=== PATIENT | female | born 1950 | race Caucasian/White ===

== ENCOUNTER → 2017-07-31 09:55 | Outpatient (CLI) | payer MEDICARE, OTHER, SELFPAY | PROVIDERS: Family Provider Physician Assistant; PCP Physician Assistant; Visit Provider Physician Assistant | DX: M85.88 Other specified disorders of bone density and structure, other site (principal) | CPT/HCPCS: 77080 ==

== ENCOUNTER → 2017-08-17 15:28 | Outpatient (CLI) | payer MEDICARE, OTHER, SELFPAY ==
--- NOTE | 2017-08-17 | DI.MG.S_ITS ---
BILATERAL DIGITAL SCREENING MAMMOGRAM 3D/2D WITH CAD: 08/17/2017 CLINICAL: Routine screening. Family history of breast cancer. Comparison is made to exams dated: 07/29/2016 mammogram - [facility], 04/23/2015 mammogram, and 01/03/2014 mammogram - [facility]. The tissue of both breasts is heterogeneously dense. This may lower the sensitivity of mammography. Current study was also evaluated with a Computer Aided Detection (CAD) system. No significant masses, calcifications, or other findings are seen in either breast. There has been no significant interval change. IMPRESSION: NEGATIVE There is no mammographic evidence of malignancy. A 1 year screening mammogram is recommended. This exam was interpreted at Station ID: [id number]. NOTE: For mammograms, a report in lay terms will be sent to the patient. Approximately 15% of breast malignancies will not be visualized mammographically. In the management of a palpable breast mass, a negative mammogram must not discourage biopsy of a clinically suspicious lesion. Electronically Signed By: Mendoza [email or web address]:08/18/2017 13:40:29 letter sent: Normal Exam ACR BI-RADS Category 1: Negative [id number]
== END ==
PROVIDERS: Family Provider Physician Assistant; PCP Physician Assistant; Visit Provider Physician Assistant
DX: Z12.31 Encounter for screening mammogram for malignant neoplasm of breast (principal); Z80.3 Family history of malignant neoplasm of breast
CPT/HCPCS: 77063; 77067

== ENCOUNTER 2017-08-28 19:44 | Emergency (ER) | payer MEDICARE, OTHER, SELFPAY ==
[2017-08-28 19:55] VITALS: BP 219/102; PULSE 84; RESP 18; TEMP 36.9; O2SAT 98; BMI 22.4
[2017-08-28 20:45] VITALS: BP 205/93; PULSE 68; O2SAT 100
[2017-08-28 20:53] LABS: Bacteria Urine None Seen; WBC Urine None Seen (0-5/HPF)
[2017-08-28 20:54] LABS: Appearance Urine UA CLEAR; Bilirubin Urine UA NEGATIVE (NEGATIVE); Color Urine UA YELLOW; Glucose Urine UA NEGATIVE (Normal); Ketones Urine UA NEGATIVE (NEGATIVE); Leukocyte Esterase Urine UA NEGATIVE (NEGATIVE); Nitrite Urine UA Negative (Negative); Occult Blood Urine UA 2+ (Negative); Protein Urine UA NEGATIVE (Negative); Urobilinogen Urine UA 0.2 E.U./dL (0.2)
[2017-08-28 21:04] VITALS: BP 175/80; PULSE 63; RESP 18; O2SAT 99
[2017-08-28 21:15] LABS: Culture Indicated Urine Cult Not Indicated; RBC Urine 0-1/HPF (0-5/HPF); Squamous Epithelial Cell Urine 0-1 /HPF
[2017-08-28 21:36] VITALS: BP 153/66; PULSE 59; RESP 14; O2SAT 98
[2017-08-28 22:04] VITALS: BP 155/72
--- NOTE | 2017-08-28 22:23 | ED.GENADULT ---
HPI - General Adult General Chief complaint: Hypertension Stated complaint: BLOOD PRESSURE KEEPS GOING UP AND HEADACHE Time Seen by Provider: 08/28/17 20:34 Source: patient Mode of arrival: ambulatory Limitations: no limitations History of Present Illness HPI narrative: 67-year-old female here for evaluation of a headache and high blood pressure. Patient states that throughout today she noticed that her blood pressure was going up. She states that she is taking her blood pressures multiple times today. She states that she has become anxious because of this. She states she has noticed that she has started to develop a headache. No vision changes. No chest pain. No shortness of breath. She has not tried anything to bring it down prior to arrival. Has not tried any Tylenol for her headache. She does have a history of high blood pressure does on hydrochlorothiazide. Related Data Home Medications Medication Instructions Recorded Confirmed multivitamin [Multiple Vitamins] 1 tab PO SEE INSTRUCTIONS #0 11/15/16 08/28/17 cholecalciferol (vitamin D3) 2,000 unit PO DAILY 08/28/17 08/28/17 [Vitamin D3] Previous Rx's Medication Instructions Recorded hydrochlorothiazide 25 mg PO QDAY #90 tab 06/05/17 Allergies Allergy/AdvReac Type Severity Reaction Status Date / Time No Known Drug Allergies Allergy Verified 08/28/17 19:59 Review of Systems Constitutional Denies chills, Denies fever(s), Reports headache(s), Denies lethargy and Denies weakness Eyes Denies change in vision, Denies eye discharge, Denies irritation and Denies loss of vision ENT Ears, Nose, Mouth, and Throat: Denies change in voice, Reports headache(s), Denies neck pain and Denies sore throat Cardiovascular Denies chest pain, Denies irregular heart rhythm, Denies lightheadedness, Denies palpitations, Denies dyspnea, Denies dyspnea on exertion and Denies orthopnea Respiratory Denies cough, Denies dyspnea, Denies dyspnea on exertion and Denies wheezing Gastrointestinal Gastrointestinal: Denies abdominal pain, Denies change in bowel habits, Denies diarrhea, Denies nausea and Denies vomiting Musculoskeletal Denies neck pain Integumentary/Breasts Denies pruritus, Denies erythema, Denies rash and Denies wounds Neurologic Reports headache(s), Denies loss of vision and Denies weakness Endocrine Denies palpitations Allergic/Immunologic Denies wheezing [facility] Medical History H/O tinnitus (Chronic Unknown) Hearing loss (Chronic Unknown) Hyperlipemia (Chronic Unknown) Hypertension (Chronic Unknown) Osteopenia (Chronic 2004) Restless leg syndrome (Chronic Unknown) Basal cell carcinoma (Resolved ~10/2016) 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) Ovarian cyst (Resolved ~1979) Surgical History History of tonsillectomy Status post tubal ligation Family History Father History of AAA (abdominal aortic aneurysm) repair History of coronary artery bypass graft x 6 History of heart disease History of kidney disease History of diabetes mellitus, type II Mother History of diabetes mellitus, type II History of stroke History of breast cancer Social History Smoking Status: Former smoker Exam Initial Vital Signs Initial Vital Signs: Vital Signs Temperature 98.5 F 08/28/17 19:55 Pulse Rate 84 08/28/17 19:55 Respiratory Rate 18 08/28/17 19:55 Blood Pressure 219/102 H 08/28/17 19:55 Pulse Oximetry 98 08/28/17 19:55 Const General: cooperative and well developed Nutritional Appearance: well nourished Orientation: alert, awake, oriented x3 and not confused Resp Effort & Inspection: normal respiratory effort, able to speak in complete sentences, no respiratory distress and no use of accessory muscles Auscultation: clear to auscultation bilaterally, no rales, no rhonchi and no wheezes Cardio Rate: regular rate Rhythm: regular rhythm Heart Sounds: no click, no gallops, no murmurs and no rubs Pulses: normal peripheral pulses Skin General: no rashes or lesions noted, No jaundice and No petechiae Neuro General: alert, oriented x3, gait normal and no focal motor deficits Speech: speech normal Extrem General: full ROM, no clubbing, cyanosis or edema, no pedal edema and no calf tenderness Course Orders Ordered: ED Orders 08/28/17 20:44 Urinalysis and Microscopic Stat Vital Signs - 8 hr 08/28/17 20:45 08/28/17 21:04 08/28/17 21:36 Pulse Rate 68 63 59 L Respiratory Rate 18 14 Blood Pressure [Right Arm] 205/93 H 175/80 H 153/66 H Pulse Oximetry 100 99 98 08/28/17 22:04 08/28/17 22:33 Pulse Rate 59 L Respiratory Rate 16 Blood Pressure [Right Arm] 155/72 H Pulse Oximetry 99 Medical Decision Making MDM Narrative Medical decision making narrative: Patient was hypertensive here in the emergency department but also has a history of hypertension. For history and physical exam was not consistent with ACS. Has not had any problems with kidney functions in the past. Does have a headache but no other signs cerebrovascular accident. Has got a normal neurologic exam. We had a long discussion regarding hypertension and concerns that we have here in the emergency department. Will hold on any workup here secondary to the lack of physical exam findings and history provided by patient. We did discuss the proper way to take blood pressures at home. We discussed return precautions. Informed her that she needed to continue her blood pressure medicines as directed. Informed her that she needed to contact her primary doctor for follow-up. She expressed understanding and agreement with plan. Lab Data Lab Results 08/28/17 Range/Units 20:44 Urine Color Yellow Urine Appearance Clear Urine pH 6.0 (4.5-8.0) Ur Specific [place] 1.010 (1.000-1.035) Urine Protein Negative (Negative) Urine Glucose (UA) Negative (Normal) g/dL Urine Ketones Negative (NEGATIVE) Urine Occult Blood 2+ H (Negative) Urine Nitrate Negative (Negative) Urine Bilirubin Negative (NEGATIVE) Urine Urobilinogen 0.2 (0.2) E.U./dL Ur Leukocyte Esterase Negative (NEGATIVE) Urine RBC 0-1/hpf (0-5/HPF) Urine WBC None seen (0-5/HPF) Ur Squamous Epith Cells 0-1 /hpf Urine Bacteria None seen (None) Ur Culture Indicated? Cult not indicated Micro UA Comment Not Reportable Discharge Plan Departure Patient Disposition: Home, Self-Care Clinical Impression: Hypertension Discharge Date/Time: 08/28/17 22:34 Interventions: ED Discharge Assessment Last Done: 08/28/17 22:33 Instructions: DI for High Blood Pressure Activity Restrictions/Additional Instructions: Recommend that you contact your primary doctor to discuss her blood pressure. Take your blood pressure at home like we discussed here in the emergency department. Return to the emergency department for any new or worsening symptoms. Prescriptions: No Action multivitamin [Multiple Vitamins] 1 EACH tablet 1 tab PO SEE INSTRUCTIONS Qty: 0 RF: 0 hydrochlorothiazide 25 MG tablet 25 mg PO QDAY Qty: 90 RF: 3 cholecalciferol (vitamin D3) [Vitamin D3] 2,000 unit Capsule 2,000 unit PO DAILY RF: 0
[2017-08-28 22:33] VITALS: PULSE 59; RESP 16; O2SAT 99
== END 2017-08-28 22:34 | disposition home or self-care (01) ==
PROVIDERS: Nurse Practitioner Family; Emergency Provider Emergency Medicine; Family Provider Physician Assistant; PCP Physician Assistant
DX: I10 Essential (primary) hypertension (principal)
CPT/HCPCS: 81001; 93041; 99283; 99284

== ENCOUNTER → 2018-02-27 12:01 | Outpatient (CLI) | payer MEDICARE, OTHER, SELFPAY ==
--- NOTE | 2018-02-27 12:04 | DI.RAD.S_ITS ---
PROCEDURE: XR SHOULDER RT MIN 2V INDICATIONS: fall TECHNIQUE: 3 views of the shoulder were acquired. COMPARISON: None. FINDINGS: Bones: No fractures or dislocations. No suspicious bony lesions. Visualized ribs appear intact. Soft tissues: No suspicious soft tissue calcifications. IMPRESSION: No fracture. No osseous lesion. If symptoms and/or clinical suspicion for pathology persists, further assessment with repeat radiographs (7-10 days) or advanced imaging (e.g. CT, MRI or bone scan) may be helpful. Dictated by: Chen Brewster MD, PhD on 02/27/2018 at 12:31 Approved by: Chen Brewster MD, PhD on 02/27/2018 at 12:32
--- NOTE | 2018-02-27 12:04 | DI.RAD.S_ITS ---
PROCEDURE: XR KNEE RT 3V INDICATIONS: fall TECHNIQUE: 3 views of the knee were acquired. COMPARISON: None. FINDINGS: Bones: No fractures or dislocations. No suspicious bony lesions. Soft tissues: No joint effusion. No suspicious soft tissue calcifications. IMPRESSION: No fracture. No osseous lesion. If symptoms and/or clinical suspicion for pathology persists, further assessment with repeat radiographs (7-10 days) or advanced imaging (e.g. CT, MRI or bone scan) may be helpful. Dictated by: Chen Brewster MD, PhD on 02/27/2018 at 12:32 Approved by: Chen Brewster MD, PhD on 02/27/2018 at 12:32
== END ==
PROVIDERS: PCP Physician Assistant; Visit Provider Physician Assistant
DX: M25.561 Pain in right knee (principal); M25.511 Pain in right shoulder
CPT/HCPCS: 73030; 73562

== ENCOUNTER → 2018-03-09 14:07 | Outpatient (CLI) | payer MEDICARE, OTHER, SELFPAY ==
[2018-03-14 18:49] LABS: Fecal Immunochemical Test NOT DETECTED
== END ==
PROVIDERS: PCP Physician Assistant; Visit Provider Physician Assistant
DX: Z12.11 Encounter for screening for malignant neoplasm of colon (principal)
CPT/HCPCS: 82274

== ENCOUNTER → 2018-03-23 13:39 | Outpatient (CLI) | payer MEDICARE, OTHER, SELFPAY ==
[2018-03-23 14:30] LABS: Influenza A and B by PCR Rapid Negative (Negative)
== END ==
PROVIDERS: Family Provider Physician Assistant; PCP Physician Assistant; Visit Provider Physician Assistant
DX: R68.89 Other general symptoms and signs (principal)
CPT/HCPCS: 87400

== ENCOUNTER 2018-07-18 23:05 | Emergency (ER) | payer MEDICARE, OTHER, SELFPAY ==
[2018-07-18 23:18] VITALS: BP 134/92; PULSE 78; RESP 18; TEMP 36.5; O2SAT 98; BMI 22.1
--- NOTE | 2018-07-18 23:21 | ED_ITS ---
HPI - Allergic Reaction General Chief complaint: Allergic Reaction Stated complaint: had pneumonia shot today, left arm swelling and ra Time Seen by Provider: 07/18/18 23:21 Source: patient Mode of arrival: ambulatory Limitations: no limitations History of Present Illness HPI narrative: Patient is a 68-year-old female who approximately 8 hours ago had a pneumonia shot in the left upper extremity at 1 of the local pharmacies. She states she has never had a reaction to an immunization in the past. She states is the day went on her left arm was swelling. She did have some redness. No fevers. Did have quite a bit of tenderness. She read the information that was given to her and that information stated that she had any swelling or redness or pain that she needed to be seen for evaluation. Related Data Home Medications Medication Instructions Recorded Confirmed cholecalciferol (vitamin D3) 2,000 unit PO DAILY 08/28/17 03/05/18 [Vitamin D3] multivitamin tablet 1 tab PO DAILY PRN 03/05/18 03/05/18 Previous Rx's Medication Instructions Recorded hydrochlorothiazide 25 mg PO QDAY #90 tab 06/05/17 cephalexin [Keflex] 500 mg PO QID 7 Days #28 cap 07/18/18 Allergies Allergy/AdvReac Type Severity Reaction Status Date / Time No Known Drug Allergies Allergy Verified 03/05/18 14:49 Review of Systems Constitutional Denies fever(s) and Denies headache(s) ENT Ears, Nose, Mouth, and Throat: Denies headache(s) Cardiovascular Denies chest pain and Denies dyspnea Respiratory Denies dyspnea Musculoskeletal Reports arthralgias (Left shoulder) and Denies tingling Integumentary/Breasts Comments: Swelling left upper arm Neurologic Denies headache(s), Denies tingling and Denies paresthesias Hematologic/Lymphatic Denies easy bleeding and Denies easy bruising [facility] Medical History H/O tinnitus (Chronic Unknown) Hearing loss (Chronic Unknown) Hyperlipemia (Chronic Unknown) Hypertension (Chronic Unknown) Osteopenia (Chronic 2004) Restless leg syndrome (Chronic Unknown) Basal cell carcinoma (Resolved ~10/2016) 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 I drink socially.) substance use type: does not use Family History Father History of AAA (abdominal aortic aneurysm) repair History of coronary artery bypass graft x 6 History of heart disease History of kidney disease History of diabetes mellitus, type II Mother History of diabetes mellitus, type II History of stroke History of breast cancer Social History Smoking Status: Former smoker Tobacco: How many years used: 7 second hand exposure: Yes (yes, my smoked.) alcohol intake: current (wine, but only occasionally. I drink socially.) substance use type: does not use Exam Initial Vital Signs Initial Vital Signs: Vital Signs Temperature 97.7 F 07/18/18 23:18 Pulse Rate 78 07/18/18 23:18 Respiratory Rate 18 07/18/18 23:18 Blood Pressure 134/92 H 07/18/18 23:18 Pulse Oximetry 98 07/18/18 23:18 Const General: cooperative, comfortable, well developed, well groomed and No acute distress Orientation: alert, awake and oriented x3 HENMT Head: normal to inspection and normocephalic Resp Effort & Inspection: normal respiratory effort Auscultation: clear to auscultation bilaterally Cardio Rate: regular rate Rhythm: regular rhythm Skin Other: Patient has swelling to the lateral aspect of the left upper extremity from the shoulder to just proximal to the elbow. Neuro General: alert, awake and oriented x3 Cognition: normal cognition Speech: speech normal Extrem Other: Patient has stiffness and decreased range of motion shoulder secondary to the swelling. left elbow and left wrist unremarkable. Psych Appearance: grossly normal and well kempt Course Vital Signs - 8 hr 07/18/18 23:18 Temperature 97.7 F Pulse Rate 78 Respiratory Rate 18 Blood Pressure 134/92 H Pulse Oximetry 98 MDM - Allergic Reaction MDM Narrative Medical decision making narrative: Patient is afebrile. She does have swelling to the left upper extremity however I feel that since the injection was just 8 hours ago that an infection is unlikely. I do suspect that this just a localized reaction. I will send her home with a prescription for antibiotics however she is going to hold on this for the next couple days to see if the swelling improves on its own with conservative treatment. If it does not she will fill the antibiotics start taking it and then follow up with her primary doctor. She was given return precautions and follow-up instructions. She expressed understanding and agreement with plan. Discharge Plan Departure Patient Disposition: Home Clinical Impression: Immunization reaction Qualifiers: Encounter type: initial encounter Qualified Code(s): T50.Z95A - Adverse effect of other vaccines and biological substances, initial encounter Instructions: DI for Immunization Reaction-Adult Activity Restrictions/Additional Instructions: You can take ibuprofen and/or Tylenol for any fevers or pain. I would recommend that you tried to use your arm as much as possible to help with the swelling. you can also ice the area. Hold on the prescription for antibiotics for the next several days if your symptoms worsen or you develop fevers or change in the redness start taking the antibiotics and contact her primary care doctor for follow-up. Prescriptions: New cephalexin [Keflex] 500 mg capsule 500 mg PO QID 7 Days Qty: 28 RF: 0 No Action multivitamin tablet 1 tab PO DAILY PRNRF: 0 hydrochlorothiazide 25 MG tablet 25 mg PO QDAY Qty: 90 RF: 3 cholecalciferol (vitamin D3) [Vitamin D3] 2,000 unit Capsule 2,000 unit PO DAILY RF: 0 Referrals: Mechelle Hansen PA-C [Primary Care Provider] -
== END 2018-07-18 23:46 | disposition home or self-care (01) ==
PROVIDERS: Emergency Provider Emergency Medicine; Family Provider Physician Assistant; PCP Physician Assistant
DX: R22.32 Localized swelling, mass and lump, left upper limb (principal); T50.Z95A Adverse effect of other vaccines and biological substances, initial encounter
CPT/HCPCS: 99282; 99283

== ENCOUNTER 2018-07-21 10:54 | Emergency (ER) | payer MEDICARE, OTHER, SELFPAY ==
[2018-07-21 11:00] VITALS: BP 150/64; PULSE 79; RESP 20; TEMP 36.6; O2SAT 100
--- NOTE | 2018-07-21 11:12 | ED.SKABFB ---
HPI - Skin/Abscess/Foreign Bdy General Chief complaint: Skin/Abscess/Foreign Body Stated complaint: states cellulitis in left arm Time Seen by Provider: 07/21/18 11:12 Source: patient and old records reviewed Mode of arrival: ambulatory Limitations: no limitations History of Present Illness HPI narrative: The patient is a 68-year-old female who presents with left arm redness and swelling. She was seen evaluated here 07/18/2018 she received a pneumonia vaccine 8 hours prior to that visit. She was given an antibiotic Keflex told to hold off for a few days not thought to be infectious. Unclear if she started Keflex she actually saw her PCP yesterday and was started on Augmentin. She says that she actually has swelling along the medial side of her arm she said that it got a 4 in worse than it was yesterday she has taken 1 dose of Augmentin. She denies any fever no numbness or tingling in her hand. The shot was given in the deltoid on the lateral side where she has no erythema. In fact she says that skin area looks a little yellow which it does. MD complaint: rash Related Data Home Medications Medication Instructions Recorded Confirmed cholecalciferol (vitamin D3) 2,000 unit PO DAILY 08/28/17 03/05/18 [Vitamin D3] multivitamin tablet 1 tab PO DAILY PRN 03/05/18 03/05/18 Previous Rx's Medication Instructions Recorded hydrochlorothiazide 25 mg PO QDAY #90 tab 06/05/17 cephalexin [Keflex] 500 mg PO QID 7 Days #28 cap 07/18/18 Allergies Allergy/AdvReac Type Severity Reaction Status Date / Time No Known Drug Allergies Allergy Verified 03/05/18 14:49 Review of Systems Review of Systems ROS Unobtainable: All systems reviewed & are unremarkable except as noted in HPI and below Constitutional Denies chills, Denies fever(s), Denies lethargy and Denies weakness Eyes Denies change in vision, Denies eye discharge, Denies irritation and Denies loss of vision Cardiovascular Denies chest pain, Denies irregular heart rhythm, Denies lightheadedness, Denies palpitations, Denies dyspnea, Denies dyspnea on exertion and Denies orthopnea Respiratory Denies cough, Denies dyspnea, Denies dyspnea on exertion and Denies wheezing Gastrointestinal Gastrointestinal: Denies abdominal pain, Denies change in bowel habits, Denies diarrhea, Denies nausea and Denies vomiting Genitourinary Denies hematuria, Denies flank pain, Denies urinary incontinence and Denies urinary urgency Musculoskeletal Denies back pain, Denies muscle weakness, Denies numbness and Denies tingling Integumentary/Breasts Reports as per HPI Neurologic Denies loss of vision, Denies numbness, Denies tingling and Denies weakness Endocrine Denies palpitations Allergic/Immunologic Denies wheezing [facility] Medical History H/O tinnitus (Chronic Unknown) Hearing loss (Chronic Unknown) Hyperlipemia (Chronic Unknown) Hypertension (Chronic Unknown) Osteopenia (Chronic 2004) Restless leg syndrome (Chronic Unknown) Basal cell carcinoma (Resolved ~10/2016) 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 I drink socially.) substance use type: does not use Family History Father History of AAA (abdominal aortic aneurysm) repair History of coronary artery bypass graft x 6 History of heart disease History of kidney disease History of diabetes mellitus, type II Mother History of diabetes mellitus, type II History of stroke History of breast cancer Social History Smoking Status: Former smoker Tobacco: How many years used: 7 second hand exposure: Yes (yes, my smoked.) alcohol intake: current (wine, but only occasionally. I drink socially.) substance use type: does not use Exam Initial Vital Signs Initial Vital Signs: Vital Signs Temperature 97.8 F 07/21/18 11:00 Pulse Rate 79 07/21/18 11:00 Respiratory Rate 20 07/21/18 11:00 Blood Pressure 150/64 H 07/21/18 11:00 Pulse Oximetry 100 07/21/18 11:00 GENERAL: Well-appearing, well-nourished and in no acute distress. HEENT: Head atraumatic,EOMI, pupils reactive, face symmetric, moist mucous membranes CARDIOVASCULAR: Regular rate and rhythm without murmurs, rubs or gallops. RESPIRATORY: Breath sounds equal bilaterally, no wheezes rales or rhonchi. ABDOMEN: Soft, nontender. Normoactive bowel sounds all 4 quadrants. No guarding or rebound. EXTREMITIES: Normal range of motion, no clubbing or edema. Neurovascularly intact NEUROLOGICAL: Alert and oriented x4.Normal gait and speech. Cranial nerves II through XII grossly intact. SKIN: Erythema and noted left arm from about axilla to 12cm below AC region. No fluctuation no induration she does have some mild swelling blister-like spots but they are very small. Blanchable. Course Orders Ordered: ED Orders 07/21/18 11:40 Complete Blood Count AUTO DIFF Stat Comprehensive Metabolic Panel Stat Lactate (Lactic Acid) Stat Procalcitonin Stat 07/21/18 12:05 Blood Culture Stat Discontinued Medications Ampicillin Sodium/Sulbactam (Sodium 3 gm/ Sodium Chloride) 100 mls @ 100 mls/hr IV NOW ONE Stop: 07/21/18 11:23 Last Infusion: 07/21/18 13:26 Dose: 0 mls/hr Admin: 07/21/18 12:12 Dose: 100 mls/hr Vital Signs - 8 hr 07/21/18 11:00 07/21/18 11:30 07/21/18 12:30 Temperature 97.8 F Pulse Rate 79 71 57 L Respiratory Rate 20 15 18 Blood Pressure 150/64 H Blood Pressure [Right Arm] 176/97 H 176/97 H Pulse Oximetry 100 100 98 07/21/18 12:46 07/21/18 13:00 07/21/18 13:44 Temperature Pulse Rate 60 89 67 Respiratory Rate 15 18 13 Blood Pressure 154/71 H Blood Pressure [Right Arm] 162/76 H 154/71 H Pulse Oximetry 98 100 100 MDM - Skin/Abscess/Foreign Bdy Lab Data Attestation: I reviewed the patient's lab results. Result diagrams: 07/21/18 11:40 07/21/18 11:40 Lab Results 07/21/18 07/21/18 07/21/18 Range/Units 11:40 11:40 11:40 WBC 6.8 (4.5-11.0) X10^3/uL RBC 4.38 (4.0-5.2) X10^6/uL Hgb 13.6 (12.0-16.0) g/dL Hct 40.8 (36-46) % MCV 93.3 (80-100) fL MCH 31.2 (26-34) PG MCHC 33.4 (30-36) % RDW 13.8 (11.6-14.8) % Plt Count 174 (150-400) X10^3/uL Neut % (Auto) 63.9 (50-75) % Lymph % (Auto) 28.3 (25-40) % [place] % (Auto) 7.2 (3-14) % Eos % (Auto) 0.3 L (2-4) % Baso % (Auto) 0.3 (0-2) % Neut # (Auto) 4300 (7487-4639) /uL Lymph # (Auto) 1900 (7384-8395) /uL [place] # (Auto) 500 (0-900) /uL Eos # (Auto) 0 (0-450) /uL Baso # (Auto) 0 (0-100) /uL Sodium 136 L (137-145) mmol/L Potassium 3.7 (3.4-5.1) mmol/L Chloride 98 (98-107) mmol/L Carbon Dioxide 28 (22-32) mmol/L BUN 16 (7-17) mg/dL Creatinine 0.70 (0.52-1.04) mg/dL Estimated GFR > 60.0 (>60) mL/min BUN/Creatinine Ratio 22.9 H (6-22) Glucose 105 (80-110) mg/dL Lactate (0.7-2.1) mmol/L Calcium 9.8 (8.4-10.2) mg/dL Total Bilirubin 0.5 (0.2-1.3) mg/dL AST 22 (14-36) IU/L ALT 26 (9-52) IU/L Alkaline Phosphatase 75 (38-126) U/L Total Protein 7.3 (6.3-8.2) g/dL Albumin 4.4 (3.5-5.0) g/dL Globulin 2.9 (1.7-4.1) g/dL Albumin/Globulin Ratio 1.5 (1.0-2.8) Procalcitonin 0.06 (<0.5) ng/mL 07/21/18 Range/Units 11:40 WBC (4.5-11.0) X10^3/uL RBC (4.0-5.2) X10^6/uL Hgb (12.0-16.0) g/dL Hct (36-46) % MCV (80-100) fL MCH (26-34) PG MCHC (30-36) % RDW (11.6-14.8) % Plt Count (150-400) X10^3/uL Neut % (Auto) (50-75) % Lymph % (Auto) (25-40) % [place] % (Auto) (3-14) % Eos % (Auto) (2-4) % Baso % (Auto) (0-2) % Neut # (Auto) (1693-9440) /uL Lymph # (Auto) (0108-8096) /uL [place] # (Auto) (0-900) /uL Eos # (Auto) (0-450) /uL Baso # (Auto) (0-100) /uL Sodium (137-145) mmol/L Potassium (3.4-5.1) mmol/L Chloride (98-107) mmol/L Carbon Dioxide (22-32) mmol/L BUN (7-17) mg/dL Creatinine (0.52-1.04) mg/dL Estimated GFR (>60) mL/min BUN/Creatinine Ratio (6-22) Glucose (80-110) mg/dL Lactate 0.8 (0.7-2.1) mmol/L Calcium (8.4-10.2) mg/dL Total Bilirubin (0.2-1.3) mg/dL AST (14-36) IU/L ALT (9-52) IU/L Alkaline Phosphatase (38-126) U/L Total Protein (6.3-8.2) g/dL Albumin (3.5-5.0) g/dL Globulin (1.7-4.1) g/dL Albumin/Globulin Ratio (1.0-2.8) Procalcitonin (<0.5) ng/mL MDM Narrative Medical decision making narrative: Patient has had 1 dose of Augmentin. At this time I would recommend that she continue on Augmentin she is given 1 dose of Unasyn. She does not appear grossly septic. She is afebrile without leukocytosis normal lactic acid. She may need some MRSA coverage however difficult to tell at this time. We discussed warning signs when to return to the ED and pressure follow-up with her PCP. Discharge Plan Departure Patient Disposition: Home Clinical Impression: Cellulitis Qualifiers: Site of cellulitis: extremity Site of cellulitis of extremity: upper extremity Laterality: left Qualified Code(s): L03.114 - Cellulitis of left upper limb Discharge Date/Time: 07/21/18 13:45 Interventions: ED Discharge Assessment Last Done: 07/21/18 13:44 Instructions: DI for Cellulitis -- Adult Activity Restrictions/Additional Instructions: *You have been diagnosed with cellulitis of left arm *What to do: Keep taking current antibiotics Augmentin, it is too early to tell if they are working or not. If no improvement after 48-72 hours may need to have antibiotics switched *Continue to take medications as directed *Follow up with your primary care provider in 2-3 days *Return to ER if you should have worsening redness, pain, fever, weakness numbness or tingling in hands or any new, worsening or concerning symptoms Prescriptions: No Action multivitamin tablet 1 tab PO DAILY PRNRF: 0 hydrochlorothiazide 25 MG tablet 25 mg PO QDAY Qty: 90 RF: 3 cholecalciferol (vitamin D3) [Vitamin D3] 2,000 unit Capsule 2,000 unit PO DAILY RF: 0 cephalexin [Keflex] 500 mg capsule 500 mg PO QID 7 Days Qty: 28 RF: 0 Referrals: Mechelle Hansen PA-C [Advanced Visual Education Director] -
[2018-07-21 11:30] VITALS: BP 176/97; PULSE 71; RESP 15; O2SAT 100
--- NOTE | 2018-07-21 11:53 | PC.NURSE ---
2nd blood cx
[2018-07-21] MEDS: AMPICILLIN/SULBACTAM 3 GM 3 GM in SODIUM CHLORIDE 0.9% 100 ML IV (12:12)
[2018-07-21 12:15] LABS: Lactate (Lactic Acid) 0.8 mmol/L (0.7-2.1)
[2018-07-21 12:16] LABS: Alanine Aminotransferase 26 IU/L (9-52); Albumin 4.4 g/dL (3.5-5.0); Albumin Globulin Ratio 1.5 (1.0-2.8); Alkaline Phosphatase 75 U/L (38-126); Aspartate Aminotransferase 22 IU/L (14-36); BUN Creatinine Ratio 22.9 (6-22); Bilirubin Total 0.5 mg/dL (0.2-1.3); Blood Urea Nitrogen 16 mg/dL (7-17); Calcium 9.8 mg/dL (8.4-10.2); Carbon Dioxide 28 mmol/L (22-32); Chloride 98 mmol/L (98-107); Estimated Glomerular Filt Rate > 60.0 mL/min (>60); Globulin 2.9 g/dL (1.7-4.1); Glucose 105 mg/dL (80-110); HEMOLYSIS < 15 (0-50); Potassium 3.7 mmol/L (3.4-5.1); Sodium 136 mmol/L (137-145); Total Protein 7.3 g/dL (6.3-8.2)
[2018-07-21 12:24] LABS: Add Manual Diff / Slide Review NO; Basophils Absolute Auto 0 /uL (0-100); Basophils Percent Auto 0.3 % (0-2); Eosinophils Absolute Auto 0 /uL (0-450); Eosinophils Percent Auto 0.3 % (2-4); Hematocrit 40.8 % (36-46); Hemoglobin 13.6 g/dL (12.0-16.0); Lymphocytes Absolute Auto 1900 /uL (1100-4500); Lymphocytes Percent Auto 28.3 % (25-40); Mean Corpuscular HGB Conc 33.4 % (30-36); Mean Corpuscular Hemoglobin 31.2 PG (26-34); Mean Corpuscular Volume 93.3 fL (80-100); Monocytes Absolute Auto 500 /uL (0-900); Monocytes Percent Auto 7.2 % (3-14); Neutrophils Absolute Auto 4300 /uL (1500-7000); Neutrophils Percent Auto 63.9 % (50-75); Platelet Count 174 X10^3/uL (150-400); Red Blood Cell Count 4.38 X10^6/uL (4.0-5.2); Red Cell Distribution Width 13.8 % (11.6-14.8); White Blood Cell Count 6.8 X10^3/uL (4.5-11.0)
[2018-07-21 12:30] VITALS: BP 176/97; PULSE 57; RESP 18; O2SAT 98
[2018-07-21 12:31] LABS: Procalcitonin 0.06 ng/mL (<0.5)
[2018-07-21 12:46] VITALS: BP 162/76; PULSE 60; RESP 15; O2SAT 98
[2018-07-21 13:00] VITALS: BP 154/71; PULSE 89; RESP 18; O2SAT 100
[2018-07-21 13:44] VITALS: BP 154/71; PULSE 67; RESP 13; O2SAT 100
== END 2018-07-21 13:45 | disposition home or self-care (01) ==
PROVIDERS: Emergency Provider Emergency Medicine; PCP Internal Medicine
DX: L03.114 Cellulitis of left upper limb (principal)
CPT/HCPCS: 36415; 80053; 83605; 84145; 85025; 87040; 96365; 99283; 99284; J0295

== ENCOUNTER → 2018-09-26 08:20 | Outpatient (CLI) | payer MEDICARE, OTHER, SELFPAY ==
[2018-09-26 09:16] LABS: Add Manual Diff / Slide Review NO; Basophils Absolute Auto 100 /uL (0-100); Basophils Percent Auto 1.1 % (0-2); Eosinophils Absolute Auto 100 /uL (0-450); Eosinophils Percent Auto 1.2 % (2-4); Hematocrit 42.6 % (36-46); Hemoglobin 14.3 g/dL (12.0-16.0); Lymphocytes Absolute Auto 3100 /uL (1100-4500); Lymphocytes Percent Auto 46.9 % (25-40); Mean Corpuscular HGB Conc 33.5 % (30-36); Mean Corpuscular Hemoglobin 31.5 PG (26-34); Monocytes Absolute Auto 500 /uL (0-900); Monocytes Percent Auto 7.6 % (3-14); Neutrophils Absolute Auto 2800 /uL (1500-7000); Neutrophils Percent Auto 43.2 % (50-75); Platelet Count 207 X10^3/uL (150-400); Red Blood Cell Count 4.53 X10^6/uL (4.0-5.2); Red Cell Distribution Width 14.5 % (11.6-14.8); White Blood Cell Count 6.5 X10^3/uL (4.5-11.0)
[2018-09-26 09:39] LABS: Alanine Aminotransferase 11 IU/L (9-52); Albumin 4.5 g/dL (3.5-5.0); Albumin Globulin Ratio 1.6 (1.0-2.8); Alkaline Phosphatase 80 U/L (38-126); Aspartate Aminotransferase 27 IU/L (14-36); BUN Creatinine Ratio 23.8 (6-22); Bilirubin Total 0.7 mg/dL (0.2-1.3); Blood Urea Nitrogen 19 mg/dL (7-17); Calcium 10.1 mg/dL (8.4-10.2); Carbon Dioxide 27 mmol/L (22-32); Chloride 101 mmol/L (98-107); Cholesterol 205 mg/dL (140-199); Estimated Glomerular Filt Rate > 60.0 mL/min (>60); Globulin 2.8 g/dL (1.7-4.1); Glucose 95 mg/dL (80-110); HDL Cholesterol 74 mg/dL (40-60); HEMOLYSIS 33 (0-50); LDL Cholesterol Calculated 119 mg/dL (<100); Potassium 4.2 mmol/L (3.4-5.1); Sodium 137 mmol/L (137-145); Total Protein 7.3 g/dL (6.3-8.2); Triglycerides 59 mg/dL (35-150)
[2018-09-26 09:59] LABS: Vitamin D 25 Hydroxy (D3) 60.9 ng/mL (30.0-100.0)
[2018-09-26 10:08] LABS: TSH w/ Reflex to FT4 1.81 uIU/mL (0.47-4.68)
[2018-09-26 10:32] LABS: HIV 1 and 2 Antibody NEGATIVE (NEGATIVE); Hep C Virus Ab w/Reflex Quant NEGATIVE s/c (NEGATIVE)
[2018-09-26 11:38] LABS: Appearance Urine UA CLEAR; Bilirubin Urine UA NEGATIVE (NEGATIVE); Color Urine UA YELLOW; Glucose Urine UA NEGATIVE (Negative); Ketones Urine UA NEGATIVE (NEGATIVE); Nitrite Urine UA NEGATIVE (Negative); Occult Blood Urine UA 1+ (Negative); Protein Urine UA NEGATIVE (Negative); Specific Gravity Urine UA 1.015 (1.000-1.035); Urobilinogen Urine UA 0.2 E.U./dL (0.2); pH Urine UA 7.5 (4.5-8.0)
[2018-09-26 12:25] LABS: Hepatitis B Surface Antigen NEGATIVE s/c (NEGATIVE)
[2018-09-26 12:52] LABS: Amorphous Sediment Urine 1+; Culture Indicated Urine Specimen Cultured; Squamous Epithelial Cell Urine 1-5 /HPF (0-5/HPF)
[2018-09-26 12:55] LABS: Bacteria Urine Few (2-10); RBC Urine 1-5/HPF (0-5/HPF); WBC Urine 1-5/HPF (0-5/HPF)
[2018-09-26 12:56] LABS: Mucus Urine 1+ (Negative)
[2018-09-28 14:56] LABS: HSV 1 IgM Screen Negative (Negative); HSV 2 IgM Screen Negative (Negative)
[2018-09-28 17:43] LABS: Hepatitis B Surf Ab Qualitativ Reactive (Nonreactive)
[2018-09-28 21:22] LABS: RPR Screen Nonreactive (Nonreactive)
== END ==
PROVIDERS: PCP Internal Medicine; Visit Provider Internal Medicine
DX: Z20.2 Contact with and (suspected) exposure to infections with a predominantly sexual mode of transmission (principal); I10 Essential (primary) hypertension; M85.811 Other specified disorders of bone density and structure, right shoulder; Z00.00 Encounter for general adult medical examination without abnormal findings
CPT/HCPCS: 36415; 80053; 80061; 81001; 82306; 84443; 85025; 86592; 86695; 86696; 86703; 86706; 86803; 87086; 87340

== ENCOUNTER → 2018-09-29 10:36 | Outpatient (CLI) | payer MEDICARE, OTHER, SELFPAY ==
--- NOTE | 2018-09-29 | DI.MG.S_ITS ---
BILATERAL DIGITAL SCREENING MAMMOGRAM 3D/2D WITH CAD: 09/29/2018 CLINICAL: Routine screening. Family history of breast cancer. Comparison is made to exams dated: 08/17/2017 mammogram, 07/29/2016 mammogram - [facility], and 04/23/2015 mammogram - [facility]. The tissue of both breasts is heterogeneously dense. This may lower the sensitivity of mammography. Current study was also evaluated with a Computer Aided Detection (CAD) system. No significant masses, calcifications, or other findings are seen in either breast. There has been no significant interval change. IMPRESSION: NEGATIVE There is no mammographic evidence of malignancy. A 1 year screening mammogram is recommended. This exam was interpreted at Station ID: [id number]. NOTE: For mammograms, a report in lay terms will be sent to the patient. Approximately 15% of breast malignancies will not be visualized mammographically. In the management of a palpable breast mass, a negative mammogram must not discourage biopsy of a clinically suspicious lesion. Electronically Signed By: Mejia garza/jocelin:10/01/2018 08:03:30 letter sent: Normal Exam ACR BI-RADS Category 1: Negative 3341F
== END ==
PROVIDERS: PCP Internal Medicine; Visit Provider Internal Medicine
DX: Z12.31 Encounter for screening mammogram for malignant neoplasm of breast (principal); Z80.3 Family history of malignant neoplasm of breast
CPT/HCPCS: 77063; 77067

== ENCOUNTER 2019-06-17 18:14 | Emergency (ER) | payer MEDICARE, OTHER, SELFPAY ==
[2019-06-17 18:22] VITALS: BP 228/110; PULSE 93; RESP 16; TEMP 36.6; O2SAT 98; BMI 23.0
--- NOTE | 2019-06-17 18:33 | ED_ITS ---
HPI - General Adult General Chief complaint: Hypertension Stated complaint: HIGH BLOOD PRESSURE Time Seen by Provider: 06/17/19 18:21 Source: patient Mode of arrival: Ambulatory Limitations: no limitations History of Present Illness HPI narrative: 69F former smoker with history of HTN presents with complaint of some dizziness and elevated BP. She denies any change in her medications. She denies chest pain, shortness of breath. She is complaining of any focal neurologic findings such as numbness, weakness or tingling. She denies any change in medication or dosing of her medications. She denies any other symptoms Onset (ago): day(s) Radiation: non-radiation Severity: mild Pain Consistency: constant Related Data Home Medications Medication Instructions Recorded Confirmed cholecalciferol (vitamin D3) 2,000 unit PO DAILY 08/28/17 03/05/18 [Vitamin D3] multivitamin 1 tab PO DAILY PRN 03/05/18 03/05/18 Previous Rx's Medication Instructions Recorded hydrochlorothiazide 25 mg PO QDAY #90 tab 06/05/17 Allergies Allergy/AdvReac Type Severity Reaction Status Date / Time No Known Drug Allergies Allergy Verified 06/17/19 18:22 Review of Systems Constitutional Constitutional: Denies chills, Denies fatigue, Denies fever(s), Denies frequent falls, Denies lethargy and Denies weakness Eyes Eyes: Denies change in vision, Denies eye discharge, Denies irritation and Denies loss of vision ENT Ears, Nose, Mouth, and Throat: Denies change in voice, Denies dizziness, Denies neck pain, Denies sore throat and Denies throat swelling Cardiovascular Cardiovascular: Denies chest pain, Denies irregular heart rhythm, Denies lightheadedness, Denies palpitations, Denies dyspnea, Denies dyspnea on exertion and Denies orthopnea Respiratory Respiratory: Denies cough, Denies dyspnea, Denies dyspnea on exertion and Denies wheezing Gastrointestinal Gastrointestinal: Denies abdominal pain, Denies change in bowel habits, Denies diarrhea, Denies nausea and Denies vomiting Genitourinary Genitourinary: Denies hematuria, Denies flank pain, Denies urinary incontinence and Denies urinary urgency Musculoskeletal Musculoskeletal: Denies back pain, Denies muscle weakness, Denies neck pain, Denies numbness and Reports tingling Integumentary/Breasts Skin/Breast: Denies pruritus, Denies erythema, Denies rash and Denies wounds Neurologic Neurologic: Denies behavioral changes, Denies confusion, Denies dizziness, Denies frequent falls, Denies loss of vision, Denies numbness, Reports tingling and Denies weakness Psychiatric Psychiatric: Denies anxiety, Denies behavioral changes, Denies confusion, Denies depression, Denies homicidal ideation and Denies suicidal ideation Endocrine Endocrine: Denies fatigue, Denies flushing and Denies palpitations Hematologic/Lymphatic Hematologic/Lymphatic: Denies easy bruising Allergic/Immunologic Allergic/Immunologic: Denies urticaria, Denies throat swelling and Denies wheezing Patient History Medical History Basal cell carcinoma (Resolved ~10/2016) H/O tinnitus (Chronic Unknown) Hearing loss (Chronic Unknown) Hyperlipemia (Chronic Unknown) Hypertension (Chronic Unknown) 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) Osteopenia (Chronic 2004) Ovarian cyst (Resolved ~1979) Restless leg syndrome (Chronic Unknown) Surgical History History of tonsillectomy Status post tubal ligation Family History Father History of AAA (abdominal aortic aneurysm) repair History of coronary artery bypass graft x 6 History of heart disease History of kidney disease History of diabetes mellitus, type II Mother History of diabetes mellitus, type II History of stroke History of breast cancer Social History Smoking Status: Former smoker Tobacco: How many years used: 7 second hand exposure: Yes (yes, my smoked.) alcohol intake: current (wine, but only occasionally. I drink socially.) substance use type: does not use Smoking Status: Former smoker alcohol intake frequency: 0-2 drinks per day Substance Use Type: does not use Exam Narrative Exam Narrative: GENERAL: [69] year old patient appears stated age. Well- nourished, well-developed patient, in mild distress. HEAD: Atraumatic. Normocephalic. EYES: Pupils equal round and reactive. Extraocular motions intact. No scleral icterus. No injection or drainage. ENT: Nose without bleeding, purulent drainage. Throat without erythema, tonsillar hypertrophy or exudate. Airway patent. NECK: Trachea midline. Non tender CARDIOVASCULAR: Regular rate and rhythm without murmurs, gallops, or rubs. RESPIRATORY: Clear to auscultation. Breath sounds equal bilaterally. No wheezes, rales, or rhonchi. GASTROINTESTINAL: Abdomen soft, non-tender, nondistended. EXTREMITIES: No edema or joint tenderness. BACK: Nontender without deformity or crepitance. No flank tenderness. NEURO: AOx3. SKIN: No rash or erythema of visible areas NIH Stroke Scale 1a. LOC: Patient is alert and keenly responsive (0) 1b. LOC Questions: Patient answers both LOC questions accurately (0) 1c. LOC Commands: Patient performs both tasks correctly (0) 2. Best Gaze: Normal (0) 3. Visual: No visual loss (0) 4. Facial palsy: Normal symmetrical movements (0) 5. Motor arm: No drift (0) 6. Motor leg: No drift (0) 7. Limb ataxia: Absent (0) 8. Sensory: Normal (0) 9. Best language: No aphasia; normal (0) 10. Dysarthria: Normal (0) 11. Extinction and inattention: No abnormality (0) NIHSS: 0 Initial Vital Signs Initial Vital Signs: Vital Signs Temperature 97.8 F 06/17/19 18:22 Pulse Rate 93 H 06/17/19 18:22 Respiratory Rate 16 06/17/19 18:22 Blood Pressure 228/110 H 06/17/19 18:22 Pulse Oximetry 98 06/17/19 18:22 Course Orders Ordered: ED Orders 06/17/19 18:24 EKG-12 Lead Stat 06/17/19 19:04 Basic Metabolic Panel Stat Complete Blood Count AUTO DIFF Stat NT-proBNP (BNP-Adult 18+) Stat Troponin & CK Cardiac Panel Stat Reevaluation(s) Reevaluation #1: patient asymptomatic now, BP down to 189/[address] Cole (management information systems director for group) 1911 Vital Signs Vital signs: Vital Signs - 8 hr 06/17/19 18:22 06/17/19 20:30 Temperature 97.8 F Pulse Rate 93 H 64 Respiratory Rate 16 18 Blood Pressure 228/110 H Blood Pressure [Left Arm] 163/73 H Pulse Oximetry 98 96 Medical Decision Making Lab Data Result diagrams: 06/17/19 19:04 06/17/19 19:04 Labs: Lab Results 06/17/19 06/17/19 06/17/19 Range/Units 19:04 19:04 19:04 WBC 6.9 (4.5-11.0) X10^3/uL RBC 4.24 (4.0-5.2) X10^6/uL Hgb 13.4 (12.0-16.0) g/dL Hct 39.2 (36-46) % MCV 92.5 (80-100) fL MCH 31.6 (26-34) PG MCHC 34.2 (30-36) % RDW 14.1 (11.6-14.8) % Plt Count 209 (150-400) X10^3/uL Neut % (Auto) 52.6 (50-75) % Lymph % (Auto) 35.0 (25-40) % [place] % (Auto) 6.9 (3-14) % Eos % (Auto) 0.9 L (2-4) % Baso % (Auto) 4.6 H (0-2) % Neut # (Auto) 3600 (2116-9943) /uL Lymph # (Auto) 2400 (2724-8752) /uL [place] # (Auto) 500 (0-900) /uL Eos # (Auto) 100 (0-450) /uL Baso # (Auto) 300 H (0-100) /uL Sodium 137 (137-145) mmol/L Potassium 3.4 (3.4-5.1) mmol/L Chloride 101 (98-107) mmol/L Carbon Dioxide 28 (22-32) mmol/L BUN 25 H (7-17) mg/dL Creatinine 0.89 (0.52-1.04) mg/dL Estimated GFR > 60.0 (>60) mL/min BUN/Creatinine Ratio 28.1 H (6-22) Glucose 116 H (80-110) mg/dL Calcium 10.4 H (8.4-10.2) mg/dL Total Creatine Kinase 81 (30-135) U/L CK-MB (CK-2) TNP CK-MB (CK-2) Rel Index TNP Troponin I < 0.012 (0.01-0.034) ng/mL NT-Pro-B Natriuret Pep 61 (<125) pg/mL ECG Data Attestation: I personally reviewed and interpreted this ECG as follows: Prior ECG tracings: available for review Discharge Plan Departure Patient Disposition: Home Clinical Impression: Essential hypertension Discharge Date/Time: 06/17/19 20:54 Instructions: DI for High Blood Pressure Activity Restrictions/Additional Instructions: *You have been diagnosed with [hypertension] *What to do: *Take medications as directed: Please take an extra Hydrochlorothiazide tomorrow morning *Follow up with your primary care provider in 2-3 days, call for an appointment. Let them know you were seen in the Emergency Department and that we ask that you be seen in follow up *Return to ER if you should have any new, worsening or concerning symptoms Prescriptions: No Action multivitamin tablet 1 tab PO DAILY PRNRF: 0 hydrochlorothiazide 25 MG tablet 25 mg PO QDAY Qty: 90 RF: 3 cholecalciferol (vitamin D3) [Vitamin D3] 2,000 unit Capsule 2,000 unit PO DAILY RF: 0 Referrals: Yolanda Fuentes MD [Primary Care Provider] -
[2019-06-17 19:13] LABS: Add Manual Diff / Slide Review NO; Basophils Absolute Auto 300 /uL (0-100); Basophils Percent Auto 4.6 % (0-2); Eosinophils Absolute Auto 100 /uL (0-450); Eosinophils Percent Auto 0.9 % (2-4); Hematocrit 39.2 % (36-46); Hemoglobin 13.4 g/dL (12.0-16.0); Lymphocytes Absolute Auto 2400 /uL (1100-4500); Mean Corpuscular HGB Conc 34.2 % (30-36); Mean Corpuscular Hemoglobin 31.6 PG (26-34); Mean Corpuscular Volume 92.5 fL (80-100); Monocytes Absolute Auto 500 /uL (0-900); Monocytes Percent Auto 6.9 % (3-14); Neutrophils Absolute Auto 3600 /uL (1500-7000); Neutrophils Percent Auto 52.6 % (50-75); Platelet Count 209 X10^3/uL (150-400); Red Blood Cell Count 4.24 X10^6/uL (4.0-5.2); Red Cell Distribution Width 14.1 % (11.6-14.8); White Blood Cell Count 6.9 X10^3/uL (4.5-11.0)
[2019-06-17 19:26] LABS: BUN Creatinine Ratio 28.1 (6-22); Blood Urea Nitrogen 25 mg/dL (7-17); Calcium 10.4 mg/dL (8.4-10.2); Carbon Dioxide 28 mmol/L (22-32); Chloride 101 mmol/L (98-107); Creatine Kinase 81 U/L (30-135); Estimated Glomerular Filt Rate > 60.0 mL/min (>60); Glucose 116 mg/dL (80-110); HEMOLYSIS < 15 (0-50); Potassium 3.4 mmol/L (3.4-5.1); Sodium 137 mmol/L (137-145)
[2019-06-17 19:38] LABS: NT-proBNP (BNP-Adult 18+) 61 pg/mL (<125); Troponin I < 0.012 ng/mL (0.01-0.034)
[2019-06-17 20:30] VITALS: BP 163/73; PULSE 64; RESP 18; O2SAT 96
--- NOTE | 2019-06-17 20:52 | PC.NURSE ---
Pt reports three high blood pressure readings at home. Denies pain. Appears anxious.
== END 2019-06-17 20:54 | disposition home or self-care (01) ==
PROVIDERS: Emergency Provider Emergency Medicine; PCP Internal Medicine
DX: I10 Essential (primary) hypertension (principal)
CPT/HCPCS: 36415; 80048; 82550; 83880; 84484; 85025; 99283; 99284

== ENCOUNTER → 2019-07-10 16:14 | Outpatient (CLI) | payer MEDICARE, OTHER, SELFPAY ==
[2019-07-10 18:55] LABS: Appearance Urine UA CLOUDY; Bilirubin Urine UA NEGATIVE (NEGATIVE); Color Urine UA YELLOW; Glucose Urine UA NEGATIVE (Negative); Ketones Urine UA TRACE (NEGATIVE); Leukocyte Esterase Urine UA 3+ (NEGATIVE); Nitrite Urine UA POSITIVE (Negative); Occult Blood Urine UA 3+ (Negative); Protein Urine UA 2+ (Negative); Urobilinogen Urine UA 0.2 E.U./dL (0.2)
[2019-07-10 19:02] LABS: pH Urine UA 5.5 (4.5-8.0)
[2019-07-10 19:09] LABS: RBC Urine 10-30/HPF (0-5/HPF); WBC Urine >100/HPF (0-5/HPF)
[2019-07-10 19:10] LABS: Bacteria Urine Moderate (10-30); Culture Indicated Urine Specimen Cultured; Squamous Epithelial Cell Urine 1-5 /HPF (0-5/HPF)
== END ==
PROVIDERS: PCP Internal Medicine; Referring Provider Student in an Organized Health Care Education/Training Program; Visit Provider Student in an Organized Health Care Education/Training Program
DX: N39.0 Urinary tract infection, site not specified (principal)
CPT/HCPCS: 81001; 87077; 87086; 87186

== ENCOUNTER → 2019-10-01 13:19 | Outpatient (CLI) | payer MEDICARE, OTHER, SELFPAY ==
--- NOTE | 2019-10-01 | DI.MG.S_ITS ---
BILATERAL DIGITAL DIAGNOSTIC MAMMOGRAM 3D/2D: 10/01/2019 CLINICAL: Bilateral breast pain. Comparison is made to exams dated: 09/29/2018 mammogram, 08/17/2017 mammogram, and 07/29/2016 mammogram - [facility]. The tissue of both breasts is heterogeneously dense. This may lower the sensitivity of mammography. No significant masses, calcifications, or other findings are seen in either breast. IMPRESSION: NEGATIVE There is no abnormality seen in either breast to correspond with the diffuse pain, however, clinical followup is recommended. There is no mammographic evidence of malignancy. A 1 year screening mammogram is recommended. This exam was interpreted at Station ID: [id number]. NOTE: For mammograms, a report in lay terms will be sent to the patient. Approximately 15% of breast malignancies will not be visualized mammographically. In the management of a palpable breast mass, a negative mammogram must not discourage biopsy of a clinically suspicious lesion. Electronically Signed By: Denver Watkins M.D. [email or web address]/:10/01/2019 14:23:43 letter sent: Clinical Evaluation ACR BI-RADS Category 1: Negative 3341F
--- NOTE | 2019-10-01 | DI.US.S_ITS ---
PROCEDURE: US PELVIC COMPLETE INDICATIONS: LEFT BREAST PAIN,POST MENOPAUSAL BLEEDING TECHNIQUE: Real-time scanning was performed of the pelvic organs, with image documentation. Additional endovaginal scanning was necessary due to incomplete visualization of the adnexal and endometrial structures by transabdominal scanning. COMPARISON: None. FINDINGS: Transabdominal scanning: Limited scanning through the kidneys shows no hydronephrosis. No pathologic free abdominal or pelvic fluid. Endovaginal scanning: Uterus: Uterus is normal in size at 4.3 x 2.6 x 2.9 cm. The endometrium measures 2 mm in combined thickness. 13 mm anterior intramural fibroid. Small amount of endocervical fluid. Ovaries: Normal ovaries measure 1.9 x 0.9 x 1.1 cm on the right and 1.7 x 0.8 x 1.0 cm on the left. IMPRESSION: 1. Endometrial echo complex measures up to 2 mm in thickness. 2. 13 mm anterior intramural fibroid. Dictated by: Crispin SHARP Interpreted: Sujit Aggarwal MD on 10/01/2019 at 15:36 Approved by: Sujit Aggarwal M.D. on 10/01/2019 at 16:23
== END ==
PROVIDERS: PCP Internal Medicine; Referring Provider Internal Medicine; Visit Provider Internal Medicine
DX: N64.4 Mastodynia (principal); N95.0 Postmenopausal bleeding; D25.1 Intramural leiomyoma of uterus
CPT/HCPCS: 76830; 76856; 77066; G0279

== ENCOUNTER → 2019-10-28 15:45 | Outpatient (ROUT) | payer MEDICARE, OTHER, SELFPAY | PROVIDERS: PCP Internal Medicine; Visit Provider Internal Medicine | DX: R30.9 Painful micturition, unspecified (principal) | CPT/HCPCS: 87086 ==

== ENCOUNTER → 2020-05-28 07:33 | Outpatient (CLI) | payer BC, MEDICARE, OTHER, SELFPAY ==
[2020-05-28] MEDS: COVID-19 VACC, Ad26(JANSSEN)/PF 0.5 ML IM (07:44)
== END ==
PROVIDERS: PCP Family Medicine; Visit Provider Internal Medicine
DX: Z23 Encounter for immunization (principal)
CPT/HCPCS: 0031A; 91303

== ENCOUNTER → 2020-10-03 09:02 | Outpatient (CLI) | payer BC, MEDICARE, OTHER, SELFPAY ==
--- NOTE | 2020-10-03 09:05 | DI.MG.S_ITS ---
BILATERAL DIGITAL SCREENING MAMMOGRAM 3D/2D WITH CAD: 10/03/2020 CLINICAL: Routine screening. Family history of breast cancer. Comparison is made to exams dated: 10/01/2019 mammogram, 09/29/2018 mammogram, 08/17/2017 mammogram - [facility], 04/23/2015 mammogram, and 01/03/2014 mammogram - [facility]. The tissue of both breasts is heterogeneously dense. This may lower the sensitivity of mammography. Current study was also evaluated with a Computer Aided Detection (CAD) system. No significant masses, calcifications, or other findings are seen in either breast. There has been no significant interval change. IMPRESSION: NEGATIVE There is no mammographic evidence of malignancy. A 1 year screening mammogram is recommended. This exam was interpreted at Station ID: [id number]. NOTE: For mammograms, a report in lay terms will be sent to the patient. Approximately 15% of breast malignancies will not be visualized mammographically. In the management of a palpable breast mass, a negative mammogram must not discourage biopsy of a clinically suspicious lesion. Electronically Signed By: Giovanni obrien/jocelin:10/05/2020 07:53:59 letter sent: Normal Exam ACR BI-RADS Category 1: Negative 3341F
== END ==
PROVIDERS: PCP Family Medicine; Referring Provider Family Medicine; Visit Provider Family Medicine
DX: Z12.31 Encounter for screening mammogram for malignant neoplasm of breast (principal); Z80.3 Family history of malignant neoplasm of breast
CPT/HCPCS: 77063; 77067

== ENCOUNTER → 2021-05-31 11:36 | Outpatient (CLI) | payer BC, OTHER, MEDICARE, SELFPAY ==
[2021-05-31 13:24] LABS: COVID19 -Nasal RAPID Negative (Negative)
== END ==
PROVIDERS: PCP Family Medicine; Visit Provider Surgery
DX: Z01.812 Encounter for preprocedural laboratory examination (principal); Z20.822 Contact with and (suspected) exposure to COVID-19
CPT/HCPCS: 87635; C9803

== ENCOUNTER 2021-06-01 11:02 | Day surgery (SDC) | payer BC, OTHER, MEDICARE, SELFPAY ==
[2021-06-01] MEDS: LACTATED RINGERS 1,000 ML 84 ML IV (11:17)
[2021-06-01 11:30] VITALS: BP 134/73; PULSE 58; RESP 16; TEMP 36.3; O2SAT 97; BMI 25.4
--- NOTE | 2021-06-01 12:04 | PM.HP.1 ---
History of Present Illness History of Present Illness Date Patient Seen: 06/01/21 Time Patient Seen: 12:04 Chief complaint: [facility] [place] Narrative: colon cancer screening using colonoscopy and moderate sedation. This is her first colonoscopy, no significant family history for colon cancer and no symptoms. 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) Osteopenia (2004) Ovarian cyst (~1979) Restless leg syndrome (Unknown) Wears glasses Surgical History Anesthesia History of facelift (~2015) History of tonsillectomy Status post tubal ligation Family & Social History Family History Father History of AAA (abdominal aortic aneurysm) repair Memory loss History of coronary artery bypass graft x 6 History of heart disease History of kidney disease History of diabetes mellitus, type II Skin cancer Hypertension Hyperlipidemia History of stroke Mother History of diabetes mellitus, type II History of stroke History of breast cancer Social History: household members spouse Tobacco & Substance use: Smoking Status Former smoker alcohol intake current alcohol intake frequency 0-2 drinks per day Substance Use Type does not use Meds Home Medications and Allergies Home Medications Medication Instructions Recorded Confirmed Type cholecalciferol (vitamin D3) 50 2,000 unit PO DAILY 08/28/17 06/01/21 History mcg (2,000 unit) capsule (Vitamin D3) multivitamin 1 tab PO DAILY PRN MDD 1 03/05/18 06/01/21 History risedronate 35 mg tablet (Actonel) 35 mg PO QWEEK #12 tab 09/03/20 06/01/21 Rx losartan 50 mg-hydrochlorothiazide 1 tab PO DAILY #90 tab 05/13/21 06/01/21 Rx 12.5 mg tablet Allergies Allergy/AdvReac Type Severity Reaction Status Date / Time No Known Drug Allergies Allergy Verified 06/01/21 11:18 Review of Systems Review of Systems ROS: Yes All systems reviewed with the patient and are negative except as otherwise documented Exam Vital Signs (past 8 hours): - 06/01/21 11:30 Temperature 97.4 F L Pulse Rate 58 L Respiratory Rate 16 Blood Pressure 134/73 Pulse Oximetry 97 Oxygen Delivery Method Room Air Const General: cooperative and healthy appearing Nutritional Appearance: average body habitus [facility] Head: normal to inspection Eyes General: appearance normal, both eyes and all related structures Neck Neck: trachea midline Chest Chest: normal inspection of the chest Resp Effort & Inspection: normal respiratory effort and able to speak in complete sentences Cardio Rate: regular rate Rhythm: regular rhythm GI Inspection: normal to inspection Palpation: soft Skin General: no rashes or lesions noted Neuro General: patient alert and patient oriented x3 Psych Appearance: grossly normal Judgment: judgment good Assessment & Plan Assessment & Plan narrative: Colon cancer screening with colonoscopy and moderate sedation COVID-19 COVID-19 status: Negative Time Spent With Patient Time with patient: less than 30 minutes Critical Care time: I spent a total of [] minutes of critical care time on this patient's care today; this time is exclusive of procedural time.
--- NOTE | 2021-06-01 12:21 | PM.OP.ENDO ---
Operative Date/Time/Diagnoses Date of procedure: 06/01/21 Time of procedure: 12:22 Pre-op diagnosis: colon cancer screening Post-op diagnosis: same Procedure & Clinicians Study performed: colonoscopy Same procedure as scheduled: Yes Indications: colon cancer screening Surgeon: Solange Ohara Procedure Notes SCOAP/Timeout: done Procedure in detail: Prep diagnosis: Colon cancer screening Postop diagnosis: Same Operative procedure: Colonoscopy with sedation Surgeon: MD Lesli Anesthetic: 5 mg of Versed, 150 mcg of fentanyl Findings: Normal colonoscopy. No diverticulosis, no polyps Procedure: Patient placed in a lateral position. Rectal exam performed showing normal tone no masses. Colonoscope inserted into the rectum and advanced to ileocecal valve with minimal difficulty. Insufflation and extraction of the scope had the above findings. Retroflexion the colon was performed as well. Impression: Normal colonoscopy, no diverticulosis, no polyps Plan: Repeat colonoscopy in 10 years unless otherwise indicated by change in clinical condition Sedation minutes: 11 Specimen(s): none sent Complications: none Impression: Normal Post-procedure Recommendations: Colonscopy in 10 years Follow up: as needed Disposition: PACU
[2021-06-01] MEDS: MIDAZOLAM 5 MG/5 ML VIAL IV (12:45)
[2021-06-01] MEDS: fentaNYL 250 MCG/5 ML INJ IV (12:45)
[2021-06-01 12:49] VITALS: BP 130/75; PULSE 55; RESP 12; TEMP 35.8; O2SAT 97
[2021-06-01 13:05] VITALS: BP 127/68; PULSE 61; RESP 15; O2SAT 94
== END 2021-06-01 13:17 | disposition home or self-care (01) ==
PROVIDERS: PCP Family Medicine; Referring Provider Surgery; Visit Provider Surgery
PROC: 0DJD8ZZ Inspection of Lower Intestinal Tract, Via Natural or Artificial Opening Endoscopic (ICD-10-PCS; CPT 45378; principal; 2021-06-01 12:15)
DX: Z12.11 Encounter for screening for malignant neoplasm of colon (principal)
CPT/HCPCS: 45378; 99152; J2250; J3010

== ENCOUNTER → 2021-09-15 15:13 | Outpatient (CLI) | payer BC, MEDICARE, OTHER, SELFPAY | PROVIDERS: PCP Family Medicine; Referring Provider Family Medicine; Visit Provider Family Medicine | DX: M81.0 Age-related osteoporosis without current pathological fracture (principal); Z78.0 Asymptomatic menopausal state | CPT/HCPCS: 77080 ==

== ENCOUNTER → 2021-10-07 11:21 | Outpatient (CLI) | payer BC, MEDICARE, OTHER, SELFPAY ==
--- NOTE | 2021-10-07 | DI.MG.S_ITS ---
BILATERAL DIGITAL SCREENING MAMMOGRAM 3D/2D WITH CAD: 10/07/2021 CLINICAL: Routine screening. Family history of breast cancer. Comparison is made to exams dated: 10/03/2020 mammogram, 10/01/2019 mammogram, and 09/29/2018 mammogram - [facility]. The tissue of both breasts is heterogeneously dense. This may lower the sensitivity of mammography. Current study was also evaluated with a Computer Aided Detection (CAD) system. No significant masses, calcifications, or other findings are seen in either breast. There has been no significant interval change. IMPRESSION: NEGATIVE There is no mammographic evidence of malignancy. A 1 year screening mammogram is recommended. Based on the Tyrer Cuzick model (a risk assessment model) the patient's lifetime risk is 12.0% and her 10 year risk is 9.9%. According to the ACR, ACS, and NCCN guidelines, an annual breast MRI exam along with mammogram is recommended if the patient's lifetime risk is 20% or greater. This exam was interpreted at Station ID: [id number]. NOTE: For mammograms, a report in lay terms will be sent to the patient. Approximately 15% of breast malignancies will not be visualized mammographically. In the management of a palpable breast mass, a negative mammogram must not discourage biopsy of a clinically suspicious lesion. Electronically Signed By: Mejia garza/jocelin:10/07/2021 12:06:59 letter sent: Normal Exam ACR BI-RADS Category 1: Negative 3341F
== END ==
PROVIDERS: PCP Family Medicine; Referring Provider Family Medicine; Visit Provider Family Medicine
DX: Z12.31 Encounter for screening mammogram for malignant neoplasm of breast (principal); Z80.3 Family history of malignant neoplasm of breast
CPT/HCPCS: 77063; 77067

== ENCOUNTER → 2021-10-29 16:43 | Outpatient (CLI) | payer BC, MEDICARE, OTHER, SELFPAY ==
[2021-10-29 19:13] LABS: Alanine Aminotransferase 16 IU/L (<35); Albumin 4.6 g/dL (3.5-5.0); Albumin Globulin Ratio 1.6 (1.0-2.8); Alkaline Phosphatase 84 U/L (38-126); Aspartate Aminotransferase 25 IU/L (14-36); BUN Creatinine Ratio 29.9 (6-22); Bilirubin Total 0.2 mg/dL (0.2-1.3); Blood Urea Nitrogen 32 mg/dL (7-17); Calcium 9.6 mg/dL (8.4-10.2); Carbon Dioxide 26 mmol/L (22-32); Chloride 105 mmol/L (98-107); Estimated Glomerular Filt Rate 55 mL/min (>60); Globulin 2.8 g/dL (1.7-4.1); Glucose 95 mg/dL (80-110); HEMOLYSIS < 15 (0-50); Potassium 3.7 mmol/L (3.4-5.1); Sodium 140 mmol/L (137-145); Total Protein 7.4 g/dL (6.3-8.2)
[2021-10-29 19:43] LABS: TSH w/ Reflex to FT4 1.28 uIU/mL (0.47-4.68)
== END ==
PROVIDERS: PCP Family Medicine; Referring Provider Family Medicine; Visit Provider Family Medicine
DX: I10 Essential (primary) hypertension (principal); M81.0 Age-related osteoporosis without current pathological fracture
CPT/HCPCS: 36415; 80053; 84443

== ENCOUNTER → 2022-10-10 09:21 | Outpatient (CLI) | payer BC, MEDICARE, OTHER, SELFPAY ==
--- NOTE | 2022-10-10 | DI.MG.S_ITS ---
BILATERAL DIGITAL SCREENING MAMMOGRAM 3D/2D WITH CAD: 10/10/2022 CLINICAL: Routine screening. Family history of breast cancer. Comparison is made to exams dated: 10/07/2021 mammogram, 10/03/2020 mammogram, and 10/01/2019 mammogram - [facility]. Both breasts are heterogeneously dense, which may obscure small masses (category c / 51-75% glandular tissue). Current study was also evaluated with a Computer Aided Detection (CAD) system. No significant masses, calcifications, or other findings are seen in either breast. There has been no significant interval change. IMPRESSION: NEGATIVE There is no mammographic evidence of malignancy. A 1 year screening mammogram is recommended. Based on the Tyrer Cuzick model (a risk assessment model) the patient's lifetime risk is 11.2% and her 10 year risk is 10.1%. According to the ACR, ACS, and NCCN guidelines, an annual breast MRI exam along with mammogram is recommended if the patient's lifetime risk is 20% or greater. This exam was interpreted at Station ID: [id number]. NOTE: For mammograms, a report in lay terms will be sent to the patient. Approximately 15% of breast malignancies will not be visualized mammographically. In the management of a palpable breast mass, a negative mammogram must not discourage biopsy of a clinically suspicious lesion. Electronically Signed By: Art lemus/jocelin:10/10/2022 12:48:04 letter sent: Normal Exam ACR BI-RADS Category 1: Negative 3341F
== END ==
PROVIDERS: PCP Family Medicine; Referring Provider Family Medicine; Visit Provider Family Medicine
DX: Z12.31 Encounter for screening mammogram for malignant neoplasm of breast (principal); Z80.3 Family history of malignant neoplasm of breast
CPT/HCPCS: 77063; 77067

== ENCOUNTER → 2023-02-24 12:16 | Outpatient (CLI) | payer MEDICARE, OTHER, SELFPAY ==
[2023-02-24 13:49] LABS: Add Manual Diff / Slide Review NO; Basophils Absolute Auto 0 /uL (0-100); Basophils Percent Auto 0.2 % (0-2); Eosinophils Absolute Auto 100 /uL (0-450); Eosinophils Percent Auto 1.6 % (2-4); Hematocrit 38.3 % (36-46); Hemoglobin 13.1 g/dL (12.0-16.0); Lymphocytes Absolute Auto 3400 /uL (1100-4500); Lymphocytes Percent Auto 39.5 % (25-40); Mean Corpuscular HGB Conc 34.3 % (30-36); Mean Corpuscular Hemoglobin 30.9 PG (26-34); Mean Corpuscular Volume 90.4 fL (80-100); Monocytes Absolute Auto 700 /uL (0-900); Monocytes Percent Auto 7.7 % (3-14); Neutrophils Absolute Auto 4300 /uL (1500-7000); Platelet Count 222 X10^3/uL (150-400); Red Blood Cell Count 4.24 X10^6/uL (4.0-5.2); White Blood Cell Count 8.5 X10^3/uL (4.5-11.0)
[2023-02-24 15:13] LABS: Alanine Aminotransferase 29 IU/L (<35); Albumin 4.5 g/dL (3.5-5.0); Albumin Globulin Ratio 1.7 (1.0-2.8); Alkaline Phosphatase 83 U/L (38-126); Aspartate Aminotransferase 30 IU/L (14-36); BUN Creatinine Ratio 32.9 (6-22); Bilirubin Total 0.5 mg/dL (0.2-1.3); Blood Urea Nitrogen 27 mg/dL (7-17); Calcium 10.6 mg/dL (8.4-10.2); Carbon Dioxide 26 mmol/L (22-32); Chloride 103 mmol/L (98-107); Estimated Glomerular Filt Rate > 60 mL/min (>60); Globulin 2.6 g/dL (1.7-4.1); Glucose 90 mg/dL (80-110); HEMOLYSIS < 15 (0-50); Potassium 4.4 mmol/L (3.4-5.1); Sodium 140 mmol/L (137-145); Total Protein 7.1 g/dL (6.3-8.2)
== END ==
PROVIDERS: PCP Family Medicine; Referring Provider Family Medicine; Visit Provider Family Medicine
DX: M81.0 Age-related osteoporosis without current pathological fracture (principal); E78.5 Hyperlipidemia, unspecified; I10 Essential (primary) hypertension
CPT/HCPCS: 36415; 80053; 85025

== ENCOUNTER → 2023-10-02 09:39 | Outpatient (CLI) | payer MEDICARE, OTHER, SELFPAY ==
--- NOTE | 2023-10-02 09:41 | DI.RAD.S_ITS ---
PROCEDURE: XR DEXA AXIAL SKELETON INDICATIONS: osteoporosis screening COMPARISON: [facility], CR, XR DEXA AXIAL SKELETON, 09/15/2021, 15:25. FINDINGS: Lumbar Spine: Bone mineral density 0.823 g/cm2, T score -1.4, osteopenia, change from previous 1.4%. Left Hip: Bone mineral density 0.784 g/cm2, T score -1.3, osteopenia. Change from previous 3.5% Left Femoral Neck: Bone mineral density 0.586 g/cm2, T score -2.4, osteopenia, change from previous-2.8%. Right Hip: Bone mineral density 0.770 g/cm2, T score -1.4, osteopenia, change from previous 3.9%. Right Femoral Neck: Bone mineral density 0.621 g/cm2, T score -2.1, osteopenia, change from previous 3.1%. Fracture Risk Calculation (when applicable): 10-year fracture risk of a major osteoporotic fracture 25% and of a hip fracture 15%. (T score greater or equal to -1.0 to: NORMAL) (T score from -1.1 to -2.4: OSTEOPENIA) (T score less than or equal to -2.5: OSTEOPOROSIS) IMPRESSION: Osteopenia elevates the patient's 10 year fracture risk as described. No significant change in bone mineral density compared to the prior exam. Follow-up guidelines as follows: Osteoporosis: Consider a repeat DEXA and Vertebral Fracture Assessment (VFA) exam in 2 years or sooner if medically necessary, to reassess this patient's status. Osteopenia: Consider a repeat DEXA in 2-3 years to reassess this patient's status, or if there is a new clinical indication. Normal: Consider a repeat DEXA in 5 years or sooner, or if there is a new clinical indication. All treatment decisions require clinical judgment and consideration of individual patient factors, including patient preferences, comorbidities, previous drug use, risk factors not captured in the FRAX model (e.g., frailty, falls, vitamin D deficiency, increased bone turnover, interval significant decline in bone density ) and possible under- or over-estimation of fracture risk by FRAX. In addition, the NOF Guide recommends that FDA-approved medical therapies be considered in postmenopausal women and men age >= 50 years with a: * Hip or vertebral (clinical or morphometric) fracture * T-score of <=-2.5 at the spine or hip * Ten-year fracture probability by FRAX of >= 3% for hip fracture or >=20% for major osteoporotic fracture. People with diagnosed cases of osteoporosis or at high risk for fracture should have regular bone mineral density tests. For patients eligible for Medicare, routine testing is allowed once every 2 years. The testing frequency can be increased to one year for patients who have rapidly progressing disease, those who are receiving or discontinuing medical therapy to restore bone mass, or have additional risk factors. Dictated by: Brissa Phillips M.D. on 10/02/2023 at 15:24 Approved by: Brissa Phillips M.D. on 10/02/2023 at 15:26
== END ==
PROVIDERS: PCP Family Medicine; Referring Provider Family Medicine; Visit Provider Family Medicine
DX: M81.0 Age-related osteoporosis without current pathological fracture
CPT/HCPCS: 77080

== ENCOUNTER → 2023-10-16 | Outpatient (CLI) | payer MEDICARE, OTHER, SELFPAY ==
--- NOTE | 2023-10-16 08:48 | DI.MG.S_ITS ---
Patient Name: TANNER RUSSO date: 1950 Sex: F Attending Physician: Jere Indications: Date: 10/16/2023 12:55 At the request of: MARCELINA ORTIZ Procedure: MM screening mammo BI BILATERAL DIGITAL SCREENING MAMMOGRAM 3D/2D WITH CAD: 10/16/2023 CLINICAL: Routine screening. Family history of breast cancer. Comparison is made to exams dated: 10/10/2022 mammogram, 10/07/2021 mammogram, and 10/03/2020 mammogram - [facility]. Both breasts are heterogeneously dense, which may obscure small masses (category c / 51-75% glandular tissue). Current study was also evaluated with a Computer Aided Detection (CAD) system. No significant masses, calcifications, or other findings are seen in either breast. There has been no significant interval change. IMPRESSION: NEGATIVE There is no mammographic evidence of malignancy. A 1 year screening mammogram is recommended. Based on the Tyrer Cuzick model (a risk assessment model) the patient's lifetime risk is 10.4% and her 10 year risk is 10.4%. According to the ACR, ACS, and NCCN guidelines, an annual breast MRI exam along with mammogram is recommended if the patient's lifetime risk is 20% or greater. This exam was interpreted at Station ID: [id number]. Continued Report - Page 2 of 2 Patient Name: TANNER RUSSO date: 1950 Sex: F Attending Physician: Jere Indications: Date: 10/16/2023 12:55 At the request of: MARCELINA ORTIZ Procedure: MM screening mammo BI NOTE: For mammograms, a report in lay terms will be sent to the patient. Approximately 15% of breast malignancies will not be visualized mammographically. In the management of a palpable breast mass, a negative mammogram must not discourage biopsy of a clinically suspicious lesion. Electronically Signed By: Art lemus/jocelin:10/16/2023 12:55:22 letter sent: Normal Exam ACR BI-RADS Category 1: Negative 3341F
== END ==
PROVIDERS: PCP Family Medicine; Referring Provider Family Medicine; Visit Provider Family Medicine
DX: Z12.31 Encounter for screening mammogram for malignant neoplasm of breast (principal); Z80.3 Family history of malignant neoplasm of breast; R92.333 Mammographic heterogeneous density, bilateral breasts
CPT/HCPCS: 77063; 77067

== ENCOUNTER → 2023-11-16 09:04 | Outpatient (CLI) | payer MEDICARE, OTHER, SELFPAY ==
[2023-11-16 10:01] LABS: Add Manual Diff / Slide Review NO; Basophils Absolute Auto 100 /uL (0-100); Basophils Percent Auto 1.1 % (0-2); Eosinophils Absolute Auto 100 /uL (0-450); Hematocrit 37.8 % (36-46); Hemoglobin 12.9 g/dL (12.0-16.0); Lymphocytes Absolute Auto 2900 /uL (1100-4500); Lymphocytes Percent Auto 41.4 % (25-40); Mean Corpuscular HGB Conc 34.1 % (30-36); Mean Corpuscular Hemoglobin 30.9 PG (26-34); Mean Corpuscular Volume 90.9 fL (80-100); Monocytes Absolute Auto 500 /uL (0-900); Monocytes Percent Auto 6.6 % (3-14); Neutrophils Absolute Auto 3500 /uL (1500-7000); Neutrophils Percent Auto 48.9 % (50-75); Platelet Count 222 X10^3/uL (150-400); Red Blood Cell Count 4.16 X10^6/uL (4.0-5.2); Red Cell Distribution Width 14.4 % (11.6-14.8); White Blood Cell Count 7.1 X10^3/uL (4.5-11.0)
[2023-11-16 10:34] LABS: Alanine Aminotransferase 14 IU/L (<35); Albumin 4.4 g/dL (3.5-5.0); Alkaline Phosphatase 91 U/L (38-126); Aspartate Aminotransferase 22 IU/L (14-36); BUN Creatinine Ratio 24.4 (6-22); Bilirubin Total 0.5 mg/dL (0.2-1.3); Blood Urea Nitrogen 22 mg/dL (7-17); Calcium 10.1 mg/dL (8.4-10.2); Carbon Dioxide 23 mmol/L (22-32); Chloride 106 mmol/L (98-107); Cholesterol 212 mg/dL (140-199); Estimated Glomerular Filt Rate > 60 mL/min (>60); Globulin 2.2 g/dL (1.7-4.1); Glucose 106 mg/dL (80-110); HDL Cholesterol 67 mg/dL (40-60); HEMOLYSIS < 15 (0-50); LDL Cholesterol Calculated 131 mg/dL (<100); Potassium 4.3 mmol/L (3.4-5.1); Sodium 140 mmol/L (137-145); Total Protein 6.6 g/dL (6.3-8.2); Triglycerides 70 mg/dL (35-150)
== END ==
PROVIDERS: PCP Family Medicine; Referring Provider Family Medicine; Visit Provider Family Medicine
DX: I10 Essential (primary) hypertension (principal); M81.0 Age-related osteoporosis without current pathological fracture; E78.5 Hyperlipidemia, unspecified
CPT/HCPCS: 36415; 80053; 80061; 85025

== ENCOUNTER → 2024-10-18 08:40 | Outpatient (CLI) | payer MEDICARE, OTHER, SELFPAY ==
--- NOTE | 2024-10-18 08:41 | DI.MG.S_ITS ---
MM screening mammo BI: 10/18/2024. BI-RADS: 1 CLINICAL: 74-year old female for bilateral screening mammogram. Tyrer-Cuzick lifetime risk of 9.3%. Current reported family history of breast cancer: mother. The patient had a prior left breast biopsy. PRIOR EXAMS 10/16/2023, 10/10/2022, 10/07/2021, 10/03/2020. MAMMOGRAPHY TECHNIQUE: 2D and 3D (tomosynthesis) digital mammographic views obtained, with additional images as needed for full coverage. Current study was also evaluated with a Computer Aided Detection (CAD) system. DENSITY C. The breasts are heterogeneously dense, which may obscure small masses. MAMMOGRAPHY FINDINGS Bilateral: No suspicious mass, asymmetry, microcalcification, or other abnormality seen. No significant change from comparison. IMPRESSION: * No evidence of malignancy. RECOMMENDATIONS Bilateral * Annual screening mammography. OVERALL ASSESSMENT CATEGORY BI-RADS-1: Negative. The [employer] recommends annual screening mammography beginning at age 40 for women with average risk of breast cancer. ELECTRONICALLY SIGNED: Che Dougherty M.D. on 10/18/2024 at 08:53:22 PM PT Interpreting Station ID: [id number]
== END ==
LOC: MAMMO 08:41
PROVIDERS: PCP Family Medicine; Referring Provider Family Medicine; Visit Provider Family Medicine
DX: Z12.31 Encounter for screening mammogram for malignant neoplasm of breast (principal); Z80.3 Family history of malignant neoplasm of breast
CPT/HCPCS: 77063; 77067

== ENCOUNTER → 2025-01-07 12:53 | Outpatient (CLI) | payer MEDICARE, OTHER, SELFPAY ==
--- NOTE | 2025-01-07 12:55 | DI.RAD.S_ITS ---
PROCEDURE: XR FOOT LT MIN 3V INDICATIONS: Left foot pain TECHNIQUE: 3 views of the foot were acquired. COMPARISON: None. FINDINGS: Bones: Mild hammertoe deformities 2nd through 5th digits and pes cavus noted. There are no focal osseous abnormalities Joints: Mild degeneration 1st MTP and 2nd through 5th interphalangeal joints . Soft tissues: Mild diffuse soft tissue swelling. IMPRESSION: Degeneration Dictated by: Madi Holloway M.D. on 01/08/2025 at 11:51 Approved by: Madi Holloway M.D. on 01/08/2025 at 11:52
== END ==
PROVIDERS: PCP Family Medicine; Referring Provider Family Medicine; Visit Provider Physician Assistant
DX: M19.072 Primary osteoarthritis, left ankle and foot (principal); M79.89 Other specified soft tissue disorders; M79.672 Pain in left foot; M20.42 Other hammer toe(s) (acquired), left foot; M21.6X2 Other acquired deformities of left foot
CPT/HCPCS: 73630

== ENCOUNTER → 2025-01-21 06:52 | Outpatient (CLI) | payer MEDICARE, OTHER, SELFPAY ==
[2025-01-21 07:56] LABS: Add Manual Diff / Slide Review NO; Hematocrit 40.0 % (36-46); Hemoglobin 13.5 g/dL (12.0-16.0); Lymphocytes Absolute Auto 3000 /uL (1100-4500); Mean Corpuscular HGB Conc 33.7 % (30-36); Mean Corpuscular Hemoglobin 30.2 PG (26-34); Mean Corpuscular Volume 89.4 fL (80-100); Platelet Count 197 X10^3/uL (150-400)
[2025-01-21 08:42] LABS: Alanine Aminotransferase 16 IU/L (<35); Albumin 4.7 g/dL (3.5-5.0); Albumin Globulin Ratio 1.9 (1.0-2.8); Alkaline Phosphatase 82 U/L (38-126); Blood Urea Nitrogen 25 mg/dL (7-17); Calcium 10.2 mg/dL (8.4-10.2); Carbon Dioxide 26 mmol/L (22-32); Chloride 105 mmol/L (98-107); Cholesterol 208 mg/dL (140-199); Estimated Glomerular Filt Rate 59 mL/min (>60); Globulin 2.5 g/dL (1.7-4.1); Glucose 105 mg/dL (70-99); HDL Cholesterol 70 mg/dL (40-60); HEMOLYSIS < 15 (0-50); Potassium 4.2 mmol/L (3.4-5.1); Sodium 139 mmol/L (137-145); Total Protein 7.2 g/dL (6.3-8.2); Triglycerides 84 mg/dL (35-150)
[2025-01-21 09:10] LABS: TSH w/ Reflex to FT4 2.30 uIU/mL (0.47-4.68)
[2025-01-21 09:29] LABS: Vitamin B12 450 pg/mL (239-931)
== END ==
PROVIDERS: PCP Family Medicine; Referring Provider Family Medicine; Visit Provider Family Medicine
DX: E78.2 Mixed hyperlipidemia (principal); M81.0 Age-related osteoporosis without current pathological fracture; I10 Essential (primary) hypertension
CPT/HCPCS: 36415; 80053; 80061; 82172; 82607; 84443; 85025

== ENCOUNTER → 2025-01-22 07:47 | Outpatient (CLI) | payer MEDICARE, OTHER, SELFPAY | PROVIDERS: PCP Family Medicine; Referring Provider Family Medicine; Visit Provider Family Medicine | DX: I07.1 Rheumatic tricuspid insufficiency (principal); R01.1 Cardiac murmur, unspecified | CPT/HCPCS: 93306 ==